=== PATIENT | male | born 1945 | race Caucasian/White ===

== ENCOUNTER 2017-01-28 19:59 | Emergency (ER) | payer MEDICARE, OTHER | END 2017-01-28 23:10 | disposition home or self-care (01) | LOC: ER 19:59 | DX: S91.349A Puncture wound with foreign body, unspecified foot, initial encounter (principal); W22.8XXA Striking against or struck by other objects, initial encounter; Y92.019 Unspecified place in single-family (private) house as the place of occurrence of the external cause; M10.9 Gout, unspecified; Z85.46 Personal history of malignant neoplasm of prostate; M19.90 Unspecified osteoarthritis, unspecified site; F17.210 Nicotine dependence, cigarettes, uncomplicated; Z88.0 Allergy status to penicillin; Z88.1 Allergy status to other antibiotic agents; Z79.899 Other long term (current) drug therapy; Z79.84 Long term (current) use of oral hypoglycemic drugs | CPT/HCPCS: 28190; 73630; 90471; 90715; 99070; 99283; 99283-25 ==

== ENCOUNTER 2017-05-01 15:38 | Observation (INO) | payer MEDICARE, OTHER ==
[~2017-05-01] VITALS: Ht 185.4 cm; Wt 109.0 kg
[2017-05-01 19:34] LABS: BASO % 0.3 % (0.2-1.2); EOS % 0.4 % (0.8-7.0); GRAN # 6.1 10_X3_uL (1.8-5.4); GRAN % 65.2 % (34.0-67.9); HEMATOCRIT 46.4 % (40-51); HEMOGLOBIN 15.7 g/dL (13.7-17.5); LYMPH # 2.2 10_X3_uL (1.3-3.6); LYMPH % 23.2 % (21.8-53.1); MEAN CORPUSCULAR HGB CONC 33.8 g/dL (32.0-36.0); MEAN CORPUSCULAR VOLUME 91.7 fL (79-92); MEAN PLATELET VOLUME 10.1 fl (7.5-11.5); MONO % 10.9 % (5.3-12.2); PLATELET COUNT 260 x10_3/uL (163-337); RED BLOOD COUNT 5.06 x10_6/uL (4.6-6.1); RED CELL DISTRIBUTION WIDTH 14.7 % (11.6-14.4); WHITE BLOOD COUNT 9.4 x10_3/uL (4.2-9.1)
[2017-05-01 19:52] LABS: ALBUMIN 3.8 gm/dL (3.4-5.0); ALKALINE PHOSPHATASE 70 U/L (50-136); ALT/SGPT 14 U/L (7.53-40.17); AST/SGOT 14 U/L (6.66-35.34); BILIRUBIN,TOTAL 0.46 mg/dL (0.0-1.0); BLOOD UREA NITROGEN 16 mg/dL (7-18); CALCIUM 8.8 mg/dL (8.7-10.7); CARBON DIOXIDE 27 mmol/L (21-32); CREATININE 0.7 mg/dL (0.6-1.3); GLUCOSE,RANDOM 128 mg/dL (70-99); SODIUM 138 mmol/L (136-145); TOTAL PROTEIN 7.1 gm/dL (6.4-8.2)
[2017-05-02 07:11] LABS: BASO % 0.3 % (0.2-1.2); EOS # 0.1 10_X3_uL (0.0-0.5); EOS % 0.9 % (0.8-7.0); GRAN # 4.8 10_X3_uL (1.8-5.4); GRAN % 62.5 % (34.0-67.9); HEMATOCRIT 40.8 % (40-51); HEMOGLOBIN 13.5 g/dL (13.7-17.5); LYMPH % 25.4 % (21.8-53.1); MEAN CORPUSCULAR HEMOGLOBIN 30.6 pg (27.0-33.0); MEAN CORPUSCULAR HGB CONC 33.1 g/dL (32.0-36.0); MEAN CORPUSCULAR VOLUME 92.5 fL (79-92); MEAN PLATELET VOLUME 10.1 fl (7.5-11.5); MONO # 0.8 10_X3_uL (0.3-0.8); MONO % 10.9 % (5.3-12.2); PLATELET COUNT 230 x10_3/uL (163-337); RED BLOOD COUNT 4.41 x10_6/uL (4.6-6.1); RED CELL DISTRIBUTION WIDTH 14.6 % (11.6-14.4); WHITE BLOOD COUNT 7.7 x10_3/uL (4.2-9.1)
[2017-05-02 07:30] LABS: AHDL CHOLESTEROL 32 mg/dL (>40); ALBUMIN 3.2 gm/dL (3.4-5.0); ALKALINE PHOSPHATASE 54 U/L (50-136); ALT/SGPT 12 U/L (7.53-40.17); AST/SGOT 10 U/L (6.66-35.34); BILIRUBIN,TOTAL 0.44 mg/dL (0.0-1.0); BLOOD UREA NITROGEN 14 mg/dL (7-18); CALCIUM 8.3 mg/dL (8.7-10.7); CARBON DIOXIDE 27 mmol/L (21-32); CHOLESTEROL 107 mg/dL (0-200); CREATININE 0.7 mg/dL (0.6-1.3); GLUCOSE,RANDOM 131 mg/dL (70-99); LDL CHOLESTEROL 60 mg/dL (0-99); POTASSIUM 3.9 mmol/L (3.5-5.1); SODIUM 140 mmol/L (136-145); TOTAL PROTEIN 5.7 gm/dL (6.4-8.2); TRIGLYCERIDES 68 mg/dL (30-200)
[2017-05-02 13:48] LABS: TROP-I < 0.30 NG/ML (0.00-0.30)
== END 2017-05-03 11:47 | disposition home or self-care (01) ==
LOC: ER 15:38 → MS 21:41 → UNDODEPER 05-03 22:06
PROVIDERS: Emergency Medicine; ADMIT Family Medicine
DX: J44.0 Chronic obstructive pulmonary disease with (acute) lower respiratory infection (principal); J84.9 Interstitial pulmonary disease, unspecified; J44.1 Chronic obstructive pulmonary disease with (acute) exacerbation; R07.89 Other chest pain; M54.9 Dorsalgia, unspecified; J98.11 Atelectasis; R10.11 Right upper quadrant pain; F41.9 Anxiety disorder, unspecified; M54.2 Cervicalgia; K59.00 Constipation, unspecified; R19.7 Diarrhea, unspecified; M10.9 Gout, unspecified; Z85.46 Personal history of malignant neoplasm of prostate; Z85.028 Personal history of other malignant neoplasm of stomach; Z88.0 Allergy status to penicillin; Z88.1 Allergy status to other antibiotic agents; F17.210 Nicotine dependence, cigarettes, uncomplicated; Z82.49 Family history of ischemic heart disease and other diseases of the circulatory system; Z83.3 Family history of diabetes mellitus; Z80.8 Family history of malignant neoplasm of other organs or systems
CPT/HCPCS: 36415; 71020; 80053; 80061; 82550; 82553; 82962; 83036; 83605; 85025; 86738; 87040; 87070; 87205; 87449; 93005; 94640; 94664; 96361; 96365; 96366; 96367; 96372; 99070; 99284; 99284-25; G0378